=== PATIENT | male | born 1980 | race Caucasian/White ===

== ENCOUNTER 2023-02-08 07:35 | Outpatient (CLI) | payer BC | END 2023-02-08 07:36 | disposition home or self-care (01) | LOC: RAD-FRANK 07:35 | PROVIDERS: ATTEND Nurse Practitioner Family | DX: M25.572 Pain in left ankle and joints of left foot (principal) ==

== ENCOUNTER 2023-08-19 12:21 | Emergency (ER) | payer BC ==
[2023-08-19 12:44] LABS: #Basophils 0.1 thou/uL (0.0-0.2); #Eosinphils 0.2 thou/uL (0.0-0.7); #Monocytes 0.7 thou/uL (0.11-0.59); #Neutrophils 5.6 thou/uL (1.40-6.50); %Basophils 0.9 % (0.0-1.0); %Eosinophils 2.8 % (0.0-10.0); %Lymphocytes 21.2 % (21.0-51.0); %Monocytes 8.5 % (0.0-10.0); %Neutrophils 66.1 % (42.0-75.0); Hematocrit 48.9 % (42.0-52.0); Hemoglobin 16.4 g/dL (14.0-18.0); Mean Corpuscular HGB CONC 33.5 g/dL (32.0-36.0); Mean Corpuscular Hemoglobin 30.3 pg (27.0-31.0); Mean Corpuscular Volume 90.2 fl (78.0-98.0); Mean Platelet Volume 10.4 fL (7.4-10.4); Platelet Count 180 10x3/uL (130-400); RBC Distribution Width 12.8 % (11.5-14.5); Red Blood Cell (RBC) Count 5.42 mill/uL (4.70-6.10); White Blood Cell (WBC) Count 8.5 10x3/uL (4.8-10.8)
[2023-08-19 13:07] LABS: ALT (SGPT) 32 U/L (8-55); AST (SGOT) 28 U/L (5-34); Albumin 4.5 g/dL (3.5-5.0); Alkaline Phosphatase 69 U/L (40-110); Anion Gap 19 mmol/L (10-20); BUN (Urea Nitrogen) 11 mg/dL (8.9-20.6); Bilirubin, Total 0.7 mg/dL (0.2-1.2); Calc. Creatinine Clearance 0 mL/min (70-130); Calcium 8.8 mg/dL (7.8-10.44); Carbon Dioxide 19 mmol/L (22-29); Chloride 104 mmol/L (98-107); Estimated GFR 91; Globulin 2.3 g/dL (2.4-3.5); Glucose 102 mg/dL (70-105); Potassium 4.2 mmol/L (3.5-5.1); Protein, Total 6.8 g/dL (6.0-8.3); Sodium 138 mmol/L (136-145)
[2023-08-19 13:09] LABS: Troponin I 0.014 ng/mL (< 0.028)
[2023-08-19] MEDS ORDERED: Morphine 4 MG/ML VIAL ONE (15:29)
[2023-08-19 15:55] LABS: Troponin I 0.013 ng/mL (< 0.028)
== END 2023-08-19 16:38 | disposition home or self-care (01) ==
LOC: ERS 12:21
DX: R07.9 Chest pain, unspecified (principal); R42 Dizziness and giddiness; M54.31 Sciatica, right side
CPT/HCPCS: 36415; 71045; 80053; 83690; 83880; 84484; 85025; 93005; 94760; 96374; J2270

== ENCOUNTER 2023-08-26 01:50 | Emergency (ER) | payer BC ==
[2023-08-26] MEDS ORDERED: Dexamethasone 10 MG/ML VIAL ONE (02:18)
[2023-08-26] MEDS ORDERED: Ketorolac Tromethamine 30 MG/ML VIAL ONE (02:18)
[2023-08-26] MEDS ORDERED: LORazepam 2 MG/ML SYR.(CARPUJECT) ONE (02:20)
== END 2023-08-26 03:26 | disposition home or self-care (01) ==
LOC: ERS 01:50
DX: M51.26 Other intervertebral disc displacement, lumbar region (principal)
CPT/HCPCS: 96374; 96375; J1100; J1885; J2060

== ENCOUNTER 2024-06-04 09:06 | Outpatient (CLI) | payer BC | END 2024-06-04 09:07 | disposition home or self-care (01) | LOC: ULT 09:06 | PROVIDERS: ATTEND Nurse Practitioner Family | DX: R74.8 Abnormal levels of other serum enzymes (principal); K76.0 Fatty (change of) liver, not elsewhere classified | CPT/HCPCS: 76705 ==